=== PATIENT | female | born 1950 | race Caucasian/White ===

== ENCOUNTER 2017-02-09 10:11 | Emergency (ER) | payer MEDICARE, OTHER ==
[2017-02-09] MEDS ORDERED: ONDANSETRON 4 MG TAB.RAPDIS PO ONE (10:38)
[2017-02-09] MEDS ORDERED: ONDANSETRON 4 MG TAB.RAPDIS ONE (10:39)
--- NOTE | 2017-02-09 10:39 | ERNOTE ---
Dizziness ER Record Date of Service: 02/09/17 Presenting Symptoms: dizziness Time Seen by Provider: 02/09/17 10:26 Source: patient, family Exam Limitations: clinical condition Immunizations: IMMUNIZATION HX Immunizations Up to Date Yes History of Influenza Vaccine Yes Hx Pneumococcal Vaccination Yes Allergies/Adverse Reactions: Allergies Allergy/AdvReac Type Severity Reaction Status Date / Time Penicillins Allergy Verified 02/09/17 10:24 Home Medications: HOME MEDICATIONS Cetirizine HCl [Zyrtec] 10 mg PO DAILY 02/09/17 [Last Taken Unknown] Magnesium 200 mg PO DAILY 02/09/17 [Last Taken Unknown] Melatonin 6 mg PO HS 02/09/17 [Last Taken Unknown] Ondansetron [Zofran Odt] 8 mg PO Q8H PRN #12 tab 02/09/17 [Last Taken Unknown] - History of Present Illness Narrative: 67 year old female brought to the ED by her family for dizziness that began a few days ago, and nausea/vomiting that began this morning. She reports that her ears have both felt full and congested for several days. She started taking an OTC decongestant yesterday without improvement. She denies any other URI symptoms. The dizziness is much worse with movement. The patient is here from out of town visiting family. Timing and Duration: gradual onset, still present Noted on awakening:: Yes Severity: max: severe Severity: currently: severe Associated Symptoms: Present: nausea, vomiting. Absent: hearing loss, ringing/ roaring in ear, ear pain, headache, weakness, numbness, sweating Sense of movement: Present: spinning Decreased ability to stand/walk:: Present: off balance Usually:: Present: walks w/o assistance Modifying Factors - (Improves): Reports: other - rest Modifying Factors - (Worsens): Reports: changing position Prior Treament: Reports: similar symptoms before - 20 years ago. Denies: recently seen Review of Systems - Review of Systems Constitutional: Absent: recent illness, fever, chills EYE: Absent: eye pain, vision changes ENT: Absent: ear pain, nose congestion, nasal drainage, sore throat Respiratory: Absent: shortness of breath, cough Cardiology: Absent: chest pain, palpitations, syncope Gastrointestinal/Abdominal: Present: nausea, vomiting. Absent: diarrhea, abdominal pain Genitourinary: Present: no symptoms reported Musculoskeletal: Absent: muscle pain, neck pain Skin: Absent: rash, lesions Neurological: Present: dizziness/light-headedness. Absent: headache Endocrine: Present: no symptoms reported Hematologic/Lymphatic: Present: no symptoms reported Psych: Present: no symptoms reported - Patient's Past Medical History Patient History - Medical: No pertinent hx Patient History - Cardiac/Respiratory: No pertinent hx Patient History - Cancer: No Hx of Cancer Patient History - Surgical Procedures: Cholecystectomy LMP (females 10-50): Menopausal - Social History Living Situations: home Smoking Status: Never smoker Have you smoked in the past 12 months: No - Immunizations Immunizations Up to Date: Yes Hx Pneumococcal Vaccination: Yes History of Influenza Vaccine: Yes Physical Exam - Physical Exam General Appearance: Present: wd/wn, alert, moderate distress Head Exam: Present: normal inspection, no evidence of injury Eye Exam: Normal inspection: bilateral, PERRL: bilateral, EOMI: bilateral - no nystagmus Ears, Nose, Throat: Present: normal ENT inspection, normal pharynx. Absent: abnormal TM (R), abnormal TM (L), nasal congestion, sinus pain/drainage Neck: Present: normal inspection, nontender, supple Respiratory: Present: no respiratory distress, normal breath sounds, no accessory muscle use, lungs clear Cardiovascular/Chest: Present: regular rate, rhythm, no murmur, normal peripheral pulses Gastrointestinal/Abdominal: Present: nontender, nondistended, soft Extremity Exam: Present: normal inspection, no edema Neurological Exam: Present: alert, oriented, no motor/sensory deficits, other - depressed appearing. Absent: normal mood/affect Skin Exam: Present: normal color, warm/dry ED Progress - Results and Orders Patient's Lab Results:: I have reviewed the patient's lab results. - Vital Signs Patient's Vital Signs:: I have reviewed the patient's vital signs. Vital Signs: Vital Signs 02/09/17 10:21 Temperature 35.6 C L Pulse Rate 64 Respiratory 12 Rate Blood Pressure 160/68 O2 Sat by Pulse 99 Oximetry - Progress/Reassessment Chief Complaint: Dizziness Progress:: Improved Plan - Plan Plan: Nausea and vomiting did improve after Zofran ODT. Able to tolerate ice chips. Attempted Dicks Siddiqui Hawkins - patient had severe worsening of vertigo when laying down, no nystagmus was noted but test limited d/t her poor tolerance of position changes. Appointment scheduled for evaluation and treatment of vertigo this afternoon in rehab. Patient was planning to return home to [place] today. Discussed returning to ED if symptoms do not improve with PT as she would likely be unable to tolerate traveling home. Rx given for Zofran ODT but instructed not to take any additional doses until after PT. Patient/family in agreement with plan. Departure Clinical Impression: Vertigo - Departure Disposition: Home Follow Up Needed Condition: Stable Instructions: Vertigo, [id number] Additional Instructions: See rehab at 2:00 as scheduled Return to ER if needed Do not take any other medications until you are evaluated in rehab Ice chips and clear liquids are ok for now, advance diet as tolerated when symptoms improve Prescriptions: Ondansetron [Zofran Odt] 8 mg PO Q8H PRN #12 tab PRN Reason: Nausea
[2017-02-09 11:00] LABS: Hematocrit 43.8 % (37.0-47.0); Hemoglobin 14.8 gm/dL (12.5-16.0); Mean Cell Volume 89.8 fl (78-100); Mean Corpuscular Hemoglobin 30.3 pg (27-31); Mean Corpuscular Hgb Conc 33.8 g/dl (32-36); Mean Platelet Volume 10.2 fl (6.0-9.5); Neutrophil % 80.7 % (42-75.0); Platelet Count 297 K/mm3 (150-450); Red Blood Count 4.88 M/mm3 (4.2-5.4); Red Cell Distribution Width 16.7 % (11.5-14.0); White Blood Count 14.8 K/mm3 (4.0-10.5)
[2017-02-09 11:16] LABS: Albumin * 4.3 gm/dl (3.4-5.0); Anion Gap 13.3 mmol/L (6.8-13.8); BUN/Creatinine Ratio 19.7 (9.0-21.6); Bilirubin, Total 0.5 mg/dL (0.0-1.1); Ca. Corrected For Albumin 8.8 mg/dL (8.4-10.2); Calcium * 9.4 mg/dL (7.9-10.9); Carbon Dioxide 25.9 mmol/L (24-32.6); Potassium 4.2 mmol/L (3.4-4.6); Total Protein 7.7 gm/dL (6.2-8.2)
[2017-02-09 12:03] VITALS: BP 133/76
== END 2017-02-09 11:57 | disposition home or self-care (01) ==
LOC: ER 10:11
DX: R42 Dizziness and giddiness (principal)